=== PATIENT | male | born 1985 | race Caucasian/White ===

== ENCOUNTER 2024-05-27 13:45 | Emergency (ER) | payer BC ==
[2024-05-27] MEDS: Acetaminophen/oxyCODONE 325-5 MG Tab PO ONE (15:40)
== END 2024-05-27 16:54 | disposition home or self-care (01) ==
LOC: MW.ED 13:45
DX: M25.561 Pain in right knee (principal); Z75.3 Unavailability and inaccessibility of health-care facilities
CPT/HCPCS: 73562; 99283; A9270